=== PATIENT | female | born 1995 | race Caucasian/White ===

== ENCOUNTER 2022-05-08 12:59 | Inpatient (IN) ==
[2022-05-08 13:49] LABS: Basophils % 0.2 %; Eosinophils # 0.1 K/mcL (0.0-0.6); Eosinophils % 0.7 %; Hematocrit 41.5 % (35.3-44.9); Hemoglobin 13.4 g/dL (11.5-15.4); Immature Granulocytes % 0.2 % (0-4); Lymphocytes # 2.2 K/mcL (0.6-4.6); Lymphocytes % 26.7 %; Mean Corpuscular HGB Conc 32.3 g/dL (31.6-35.5); Mean Corpuscular Volume 83.5 fL (83.0-100.0); Mean Platelet Volume 9.2 fL (9.4-12.4); Monocytes # 0.4 K/mcL (0.0-1.3); Monocytes % 4.9 %; Neutrophils # 5.5 K/mcL (1.6-8.9); Platelet Count 357 K/mcL (140-400); Red Blood Count 4.97 M/mcL (3.82-4.97); Red Cell Distribution Width 12.8 % (11.5-14.5); Segmented Neutrophils % 67.3 %; White Blood Count 8.2 K/mcL (4.3-11.1)
[2022-05-08 13:52] LABS: Bilirubin,Urine Negative (Negative); Blood,Urine Negative (Negative); Clarity,Urine Clear (Clear); Color,Urine Yellow (Yellow); Glucose,Urine (UA) Normal (Normal); Ketones,Urine Negative (Negative); Leukocyte Esterase,Urine Large (Negative); Mucus,Urine Few per lpf (None-Few); Nitrite,Urine Negative (Negative); Protein,Urine Trace mg/dL (Neg-Trace); Squamous Epithelial Cell,Urine Moderate per hpf (None-Few); Urobilinogen,Urine Normal (Normal); WBC,Urine 30-50 per hpf (0-3)
[2022-05-08 13:56] LABS: Amphetamine Screen,Urine Negative ng/mL (Cutoff=1000); Barbiturate Screen,Urine Negative ng/mL (Cutoff=200); Benzodiazepines Screen,Urine Negative ng/mL (Cutoff=200); Cannabinoid Screen,Urine Negative ng/mL (Cutoff = 50); Cocaine Screen,Urine Negative ng/mL (Cutoff= 300); Opiate Screen,Urine Negative ng/mL (Cutoff=300); Phencyclidine Screen,Urine Negative ng/mL (Cutoff=25)
[2022-05-08 14:12] LABS: Acetaminophen < 10 mcg/mL (10-20); BUN/Creatinine Ratio 15 (6-26); Blood Urea Nitrogen 14 mg/dL (6-20); Calcium 9.5 mg/dL (8.6-10.3); Carbon Dioxide 22 mEq/L (23-29); Chloride 108 mEq/L (98-107); Ethanol < 10 mg/dL (Less than 10); Glucose 96 mg/dL (70-105); Osmolality,Calculated 290 (280-300); Potassium 3.7 mEq/L (3.5-5.1); Salicylate < 2.5 mg/dL (15.0-30.0); Sodium 140 mEq/L (136-145)
[2022-05-08 20:41] LABS: Influenza A PCR Negative (Negative); Influenza B PCR Negative (Negative); Resp. Syncytial Virus PCR Negative (Negative)
[2022-05-08 20:49] LABS: SARS-CoV-2 by PCR (In House) Negative (Negative)
[2022-05-08] MEDS ORDERED: MOM Conc 10 ML UD.LIQ PO PRN (22:35)
[2022-05-08] MEDS ORDERED: Haloperidol Lactate 5 MG/ML VIAL IM PRN (22:35)
[2022-05-08] MEDS ORDERED: Ibuprofen 400 MG TABLET PO PRN (22:35)
[2022-05-08] MEDS ORDERED: *HR* LORazepam 1 MG TABLET PO PRN (22:35)
[2022-05-08] MEDS ORDERED: Mag Hydrox/Al Hydrox/Simeth 30 ML UDC PO PRN (22:35)
[2022-05-08] MEDS ORDERED: Acetaminophen 325 MG TABLET PO PRN (22:35)
[2022-05-08] MEDS ORDERED: haloperidoL 5 MG TABLET PO PRN (22:35)
[2022-05-08] MEDS ORDERED: hydrOXYzine pamoate 25 MG CAPSULE PO PRN (22:35)
[2022-05-08] MEDS ORDERED: *HR* LORazepam 2 MG/ML VIAL IM PRN (22:35)
[2022-05-08] MEDS ORDERED: traZODone 50 MG TABLET PO PRN (22:35)
[2022-05-09] MEDS ORDERED: BuPROPion XL (24 HR) 150 MG TABLET PO SCH (09:00)
[2022-05-09] MEDS: lamoTRIgine 100 MG TABLET PO SCH (12:25)
[2022-05-10] MEDS: lamoTRIgine 100 MG TABLET PO SCH (08:50)
[2022-05-10] MEDS ORDERED: ARIPiprazole 2 MG TABLET PO SCH (09:00)
[2022-05-10 09:39] VITALS: BP 148/85; PULSE 102; TEMP 97.2; O2SAT 100
== END 2022-05-10 14:40 | disposition home or self-care (01) | DRG 885 ==
LOC: EMEROOARM 12:59 → 1ANU 22:28
PROVIDERS: ADMIT Psychiatry & Neurology Forensic Psychiatry; ATTEND Psychiatry & Neurology Forensic Psychiatry